=== PATIENT | female | born 1995 | race Caucasian/White ===

== ENCOUNTER 2017-01-02 00:50 | Emergency (ER) | payer SELFPAY ==
[2017-01-02 00:55] VITALS: BP 111/72; PULSE 78; RESP 20; TEMP 98.9; O2SAT 100
[2017-01-02] MEDS ORDERED: ADDE20 PO (01:02)
[2017-01-02] MEDS ORDERED: LO LTAB PO (01:02)
--- NOTE | 2017-01-02 01:34 | PD ---
HPI Chief Complaint: Psychiatric Symptoms Time Seen by Provider: 01:20 Travel History International Travel<30 days: No Contact w/Intl Traveler<30days: No Traveled to known affect area: No History of Present Illness HPI 21-year-old female presents under Amaya act initiated by the police were. The patient reports a history of anxiety. She reports that she been on a lot of stress in regards to school/family/relationship issues and tonight she felt overwhelmed and cut her left forearm superficially with a knife. Or may call the police and she was placed under Amaya act. She is currently anxious and tearful, feeling somewhat depressed but is denying suicidal ideation. She admits to drinking some rum tonight. Denies any drug use. She has no other complaints at this time. Her last tetanus vaccination is unknown. [facility] Past Medical History ADD: Yes Anxiety: Yes Immunizations Current: Yes Tetanus Vaccination: Unknown ?: Unknown Past Surgical History Surgical History: No Previous Surgery Social History Alcohol Use: Yes Tobacco Use: No Substance Use: No Allergies-Medications (Allergen,Severity, Reaction): Coded Allergies: No Known Allergies (Unverified , 01/02/17) Reported Meds & Prescriptions Reported Meds & Active Scripts Active Reported Lo Loestrin Fe /10 (Norethindrone-Ethinyl Estradiol-Fe) 1-10 Mg-Mcg Tab 1 Tab PO DAILY Adderall (Amphetamine-Dextroamphetamine) 20 Mg Tab 20 Mg PO DAILY Avoid late evening doses. Space doses at least 4 to 6 hours if more than once/day dosing. Review of Systems Except as stated in HPI: all other systems reviewed are Neg Physical Exam Narrative GENERAL: Well-developed well-nourished female who is anxious and tearful SKIN: Warm and dry. Superficial linear abrasions left forearm. HEAD: Atraumatic. Normocephalic. EYES: Pupils equal and round. No scleral icterus. No injection or drainage. ENT: No nasal bleeding or discharge. Mucous membranes pink and moist. NECK: Trachea midline. No JVD. CARDIOVASCULAR: Regular rate and rhythm. No murmur appreciated. RESPIRATORY: No accessory muscle use. Clear to auscultation. Breath sounds equal bilaterally. GASTROINTESTINAL: Abdomen soft, non-tender, nondistended. Hepatic and splenic margins not palpable. MUSCULOSKELETAL: No obvious deformities. No clubbing. No cyanosis. No edema. NEUROLOGICAL: Awake and alert. No obvious cranial nerve deficits. Motor grossly within normal limits. Normal speech. PSYCHIATRIC: Anxious, tearful, depressed Data Data Last Documented VS Vital Signs Date Time Temp Pulse Resp B/P Pulse Ox O2 Delivery O2 Flow Rate FiO2 01/02/17 00:55 98.9 78 20 111/72 100 Orders Complete Blood Count With Diff (01/02/17 01:31) Comprehensive Metabolic Panel (01/02/17 01:31) Ed Urine Pregnancytest Poc (01/02/17 01:31) Psych Screen (01/02/17 01:31) Drug Screen, Random Urine (01/02/17 01:31) Alcohol (Ethanol) (01/02/17 01:31) Lorazepam Inj (Ativan Inj) (01/02/17 01:45) Tetanus/Diphtheria Tox Adult (Tetanus/Di (01/02/17 01:45) Labs Laboratory Tests Test 01/02/17 01:45 White Blood Count 7.4 TH/MM3 Red Blood Count 4.64 MIL/MM3 Hemoglobin 15.0 GM/DL Hematocrit 43.1 % Mean Corpuscular Volume 92.8 FL Mean Corpuscular Hemoglobin 32.4 PG Mean Corpuscular Hemoglobin 34.9 % Concent Red Cell Distribution Width 12.7 % Platelet Count 292 TH/MM3 Mean Platelet Volume 7.6 FL Neutrophils (%) (Auto) 57.5 % Lymphocytes (%) (Auto) 35.7 % Monocytes (%) (Auto) 5.5 % Eosinophils (%) (Auto) 0.7 % Basophils (%) (Auto) 0.6 % Neutrophils # (Auto) 4.3 TH/MM3 Lymphocytes # (Auto) 2.6 TH/MM3 Monocytes # (Auto) 0.4 TH/MM3 Eosinophils # (Auto) 0.0 TH/MM3 Basophils # (Auto) 0.0 TH/MM3 CBC Comment DIFF FINAL Differential Comment Sodium Level 144 MEQ/L Potassium Level 3.6 MEQ/L Chloride Level 109 MEQ/L Carbon Dioxide Level 24.8 MEQ/L Anion Gap 10 MEQ/L Blood Urea Nitrogen 8 MG/DL Creatinine 0.71 MG/DL Estimat Glomerular Filtration 105 ML/MIN Rate Random Glucose 76 MG/DL Calcium Level 8.7 MG/DL Total Bilirubin 0.4 MG/DL Aspartate Amino Transf 18 U/L (AST/SGOT) Alanine Aminotransferase 25 U/L (ALT/SGPT) Alkaline Phosphatase 60 U/L Total Protein 7.9 GM/DL Albumin 3.9 GM/DL Urine Opiates Screen NEG Urine Barbiturates Screen NEG Urine Amphetamines Screen NEG Urine Benzodiazepines Screen NEG Urine Cocaine Screen NEG Urine Cannabinoids Screen NEG Ethyl Alcohol Level 204 MG/DL [facility] Medical Decision Making Medical Screen Exam Complete: Yes Emergency Medical Condition: Yes Medical Record Reviewed: Yes Differential Diagnosis Adjustment reaction, acute psychosis, anxiety, major depressive disorder, substance induced disorder Narrative Course 21-year-old female presents under Amaya act for psychiatric evaluation. She has superficial linear abrasions to the left arm. Lab work is been reviewed. Alcohol level is 204 otherwise unremarkable. Mental health screening discussed with the patient. Psychiatric screen ordered. The patient is medically cleared. Diagnosis Primary Impression: Medical clearance for psychiatric admission Davis Warner Jan 02, 2017 01:34
[2017-01-02] MEDS ORDERED: TETANUS/DIPHTHERIA TOXOID ADULT 0.5 ML VIAL IM ONE (01:45)
[2017-01-02] MEDS ORDERED: LORazepam 2 MG/ML VIAL IM ONE (01:45)
[2017-01-02 02:24] LABS: AMPHETAMINE, URINE NEG (NEG); AUTOMATED NEUTROPHIL # 4.3 TH/MM3 (1.8-7.7); BARBITURATES, URINE NEG (NEG); BASOPHIL % 0.6 % (0.0-2.0); COCAINE, URINE NEG (NEG); EOSINOPHIL % 0.7 % (0.0-4.0); HEMATOCRIT 43.1 % (35.0-46.0); HEMO FLAGS DIFF FINAL; LYMPH % 35.7 % (9.0-44.0); LYMPHOCYTE # 2.6 TH/MM3 (1.0-4.8); MEAN CELL VOLUME 92.8 FL (80.0-100.0); MEAN CORPUSCULAR HEMOGLOBIN 32.4 PG (27.0-34.0); MEAN CORPUSCULAR HGB CONC 34.9 % (32.0-36.0); MONO % 5.5 % (0.0-8.0); NEUT % 57.5 % (16.0-70.0); PLATELET COUNT 292 TH/MM3 (150-450); RED BLOOD COUNT 4.64 MIL/MM3 (4.00-5.30); RED CELL DISTRIBUTION WIDTH 12.7 % (11.6-17.2); WHITE BLOOD COUNT 7.4 TH/MM3 (4.0-11.0)
[2017-01-02 02:38] LABS: ALT (GPT) 25 U/L (9-42); ANION GAP 10 MEQ/L (5-15); AST (GOT) 18 U/L (16-38); BICARBONATE 24.8 MEQ/L (21.0-32.0); BLOOD UREA NITROGEN 8 MG/DL (7-18); CHLORIDE 109 MEQ/L (98-107); GLOMERULAR FILTRATION RATE 105 ML/MIN (>89); POTASSIUM 3.6 MEQ/L (3.5-5.1); SODIUM (NA) 144 MEQ/L (136-145)
[2017-01-02 02:41] LABS: ALKALINE PHOSPHATASE 60 U/L (45-117); TOTAL BILIRUBIN ADULT 0.4 MG/DL (0.2-1.0)
[2017-01-02 06:30] VITALS: BP 100/57; PULSE 82; RESP 17; O2SAT 97
[2017-01-02 08:00] VITALS: BP 110/76; TEMP 97.8
--- NOTE | 2017-01-02 09:38 | PD.CONS ---
Provisional Diagnosis Admission Date 01/02/17 [place] 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 EMS was called patient brought to the hospital under the Amaya act. Patient seen screened in ED urine toxicology negative cortical level 204. Patients very superficial abrasions left volar wrist were treated. Patient medically cleared. Patient seen by me with nurse Nena. 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 There is also stress with grades. Patient states she is a very social person doing well in school. She has acknowledged drinking 2-3 times per week she drinks he usually does this in excess. She states she also drank in high school. She history of alcohol abuse in her family of origin also. She denies any other drug use. She states she has been in counseling since a teenager for anxiety and perhaps some depressive symptoms. She denies psychiatric contact hospitalizations or psychotropic medications patient denies suicidality at this time, is able contracted to no harm. Patient denies any physical or sexual abuse. At the present time patient does not meet Amaya act criteria I will lift the Amaya act. As okay by Peewee Bellamy patient to be discharged to herself, no Rx by me, strongly referral [facility] through [facility]. Referral also to AA. And perhaps stops abuse counseling through the [facility] also. Review of Systems Constitutional: DENIES: Diaphoretic episodes, Fatigue, Fever, Weight gain, Weight loss, Chills, Dizziness, Change in appetite, Night Sweats Endocrine: DENIES: Abnorml menstrual pattern, Heat/cold intolerance, Polydipsia , Polyuria, Polyphagia Eyes: DENIES: Blurred vision, Diplopia, Eye inflammation, Eye pain, Vision loss , Photosensitivity, Double Vision Ears, nose, mouth, throat: DENIES: Tinnitus, Hearing loss, Vertigo, Nasal discharge, Oral lesions, Throat pain, Hoarseness, Ear Pain, Running Nose, Epistaxis, Sinus Pain, Toothache, Odynophagia Respiratory: DENIES: Apneas, Cough, Snoring, Wheezing, Hemoptysis, Sputum production, Shortness of breath Cardiovascular: DENIES: Chest pain, Palpitations, Syncope, Dyspnea on Exertion , PND, Lower Extremity Edema, Orthopnea, Claudication Gastrointestinal: DENIES: Abdominal pain, Black stools, Bloody stools, Constipation, Diarrhea, Nausea, Vomiting, Difficulty Swallowing, Anorexia Genitourinary: DENIES: Abnormal vaginal bleeding, Dysmenorrhea, Dyspareunia, Sexual dysfunction, Urinary frequency, Urinary incontinence, Urgency, Hematuria , Dysuria, Nocturia, Vaginal discharge Musculoskeletal: DENIES: Joint pain, Muscle aches, Stiffness, Joint Swelling, Back pain, Neck pain Integumentary: DENIES: Abnormal pigmentation, Pruritus, Rash, Nail changes, Breast masses, Breast skin changes, Nipple discharge Hematologic/lymphatic: DENIES: Bruising, Lymphadenopathy Immunologic/allergic: DENIES: Eczema, Urticaria Neurologic: DENIES: Abnormal gait, Headache, Localized weakness, Paresthesias, Seizures, Speech Problems, Tremor, Poor Balance Psychiatric: COMPLAINS OF: Depression Past Family Social History Coded Allergies: No Known Allergies (Unverified , 01/02/17) Past Medical History None significant Reported Medications Norethindrone-Ethinyl Estradiol-Fe (Lo Loestrin Fe 10/06)1-10 Mg-Mcg Tab1 Tab PO DAILY #1 PACK Ref 0 01/02/17 Amphetamine-Dextroamphetamine (Adderall)20 Mg Tab20 Mg PO DAILY #30 TAB Ref 0 Avoid late evening doses. Space doses at least 4 to 6 hours if more than once/day dosing. 01/02/17 Family History Patient states mother was a heavy drinker Social History Patient lives her own home with roommate will be going to graduate school next year is having some difficulty with boyfriend's Patient's Strengths (min. 2) Patient verbal intelligence cooperative Physical Exam Patient seen screened in ED exam reviewed and agreed with Vital Signs Vital Signs Date Time Temp Pulse Resp B/P Pulse Ox O2 Delivery O2 Flow Rate FiO2 01/02/17 06:30 82 17 100/57 97 Room Air 01/02/17 00:55 98.9 Mental Status Examination Alert oriented white female appears stated age resting calmly and her bed on the pod nurse Nena present throughout session patient calm cooperative with good eye contact Appearance Clean and neat Speech: Unremarkable Orientation: x3 Memory: Unremarkable Thought Process: Logical Thought Content: Unremarkable Language [place] [employer] Good Hallucination Type: None Attention and Concentration: Good Suicidal Ideation: Yes (has had vague suicidal ideation though no intent or plan able contracted to no harm) Previous Suicide Attempts: No Homicidal Ideation: No Previous Homicide Attempts: No Insight: Fair Judgment: WNL Affect: Other (slight decreased range and intensity) Mood: Euthymic (to mildly restricted) Motor Activity: Normal gait Assessment & Plan Problem List: (1) Adjustment disorder with mixed disturbance of emotions and conduct ICD Code: F43.25 (2) Alcohol intoxication, episodic ICD Code: F10.129 Assessment & Plan Estimated LOS: days patient does not meet Amaya criteria will lift Amaya act as okay by psych for discharge or medically clear and stable. No Rx by me. Strongly referral to counseling through the [facility], also referred to substance abuse assessment through the [facility] and perhaps also AA Discharge Planning See above Request HC Surrog/Guard Advoc?: No Saurav Avery MD Jan 02, 2017 09:38
== END 2017-01-02 10:14 | disposition home or self-care (01) ==
LOC: NEPB 00:50
DX: F32.9 Major depressive disorder, single episode, unspecified (principal); F10.129 Alcohol abuse with intoxication, unspecified; S40.812A Abrasion of left upper arm, initial encounter; Y90.7 Blood alcohol level of 200-239 mg/100 ml; X78.1XXA Intentional self-harm by knife, initial encounter; Y93.9 Activity, unspecified; Y92.214 College as the place of occurrence of the external cause; Y99.8 Other external cause status
CPT/HCPCS: 80053; 80307; 84703; 85025; 90471; 90714; 96372; 99284; J2060

== ENCOUNTER 2017-02-13 22:30 | Emergency (ER) | payer SELFPAY ==
[~2017-02-13] VITALS: Ht 175.3 cm; Wt 70.0 kg
[~2017-02-13 22:30] MED LIST: ADDE20 PO; LO LTAB PO
[2017-02-13 22:40] VITALS: BP 128/87; PULSE 94; RESP 18; TEMP 98.9; O2SAT 97
[2017-02-13] MEDS ORDERED: SODIUM CHLOR 0.9% 1000 ML INJ 1,000 ML IV SCH (23:25)
[2017-02-13] MEDS ORDERED: SODIUM CHLORIDE 0.9% FLUSH 10 ML FLUSH IV FLUSH PRN (23:30)
[2017-02-13] MEDS ORDERED: KETOROLAC TROMETHAMINE 30 MG/ML (IVP) VIAL IVP ONE (23:30)
[2017-02-13 23:42] LABS: BLOOD, URINE TRACE (NEG); COMMENT (UR) CULTURE INDICATED; CULTURE IF INDICATED CULTURE INDICATED; GLUCOSE,URINE NEG (NEG); KETONE, URINE 10 mg/dL (NEG); MUCUS URINE MANY /lpf (OCC); NITRITE,URINE NEG (NEG); SQUAMOUS EPITHELIAL CELL URINE 13 /hpf (0-5); URINE COLOR ORANGE (YELLW/STRAW)
[2017-02-13 23:58] LABS: AUTOMATED NEUTROPHIL # 4.3 TH/MM3 (1.8-7.7); BASOPHIL % 0.7 % (0.0-2.0); EOSINOPHIL # 0.1 TH/MM3 (0-0.4); EOSINOPHIL % 0.9 % (0.0-4.0); HEMATOCRIT 34.5 % (35.0-46.0); HEMO FLAGS DIFF FINAL; LYMPH % 29.7 % (9.0-44.0); MEAN CELL VOLUME 97.2 FL (80.0-100.0); MEAN CORPUSCULAR HEMOGLOBIN 33.1 PG (27.0-34.0); MONO % 5.1 % (0.0-8.0); NEUT % 63.6 % (16.0-70.0); PLATELET COUNT 233 TH/MM3 (150-450); RED BLOOD COUNT 3.55 MIL/MM3 (4.00-5.30); RED CELL DISTRIBUTION WIDTH 13.8 % (11.6-17.2); WHITE BLOOD COUNT 6.7 TH/MM3 (4.0-11.0)
--- NOTE | 2017-02-14 00:06 | PD ---
HPI Chief Complaint: Complaint Time Seen by Provider: 23:16 Travel History International Travel<30 days: No Contact w/Intl Traveler<30days: No Traveled to known affect area: No History of Present Illness HPI 21-year-old female 0 arrives with dysuria for several days. She reports several urinary tract infections in the last couple months. She also reports vaginal candidiasis. She finished a course of Cipro. That preceded the vaginal candidiasis. She took Diflucan however she's had persistent vaginal discharge. She also reports some pain in the bilateral lower back which she believes is due to kidney injury. She's had no fever nausea or vomiting. PFSH Past Medical History ADD: Yes Anxiety: Yes Diminished Hearing: No Genitourinary: Yes (FREQUENT UTI) Kidney Stones: Yes Immunizations Current: Yes ?: Not Past Surgical History Surgical History: No Previous Surgery Social History Alcohol Use: Yes (OCC) Tobacco Use: No Substance Use: No (PT DENIES) Allergies-Medications (Allergen,Severity, Reaction): Coded Allergies: No Known Allergies (Unverified , 02/13/17) Reported Meds & Prescriptions Reported Meds & Active Scripts Active Macrobid (Nitrofurantoin Monoh/Nitrofur Macro) 100 Mg Cap 100 Mg PO BID 5 Days Reported Lo Loestrin Fe 1/10 (Norethindrone-Ethinyl Estradiol-Fe) 1-10 Mg-Mcg Tab 1 Tab PO DAILY Adderall (Amphetamine-Dextroamphetamine) 20 Mg Tab 20 Mg PO DAILY Avoid late evening doses. Space doses at least 4 to 6 hours if more than once/day dosing. Review of Systems Except as stated in HPI: all other systems reviewed are Neg General / Constitutional: No: Fever Genitourinary: Positive: Discharge, No: Dysmenorrhea, Vaginal Bleeding Physical Exam Narrative GENERAL: 21-year-old female pleasant well-nourished well-developed PELVIC: Moderate yellow mucus-like discharge in the vault. Trace CMT. External genitalia unremarkable. No adnexal mass or tenderness. SKIN: Warm and dry. HEAD: Atraumatic. Normocephalic. EYES: Pupils equal and round. No scleral icterus. No injection or drainage. ENT: No nasal bleeding or discharge. Mucous membranes pink and moist. CARDIOVASCULAR: Regular rate and rhythm. RESPIRATORY: No accessory muscle use. Clear to auscultation. Breath sounds equal bilaterally. GASTROINTESTINAL: Abdomen soft, non-tender, nondistended. Hepatic and splenic margins not palpable. MUSCULOSKELETAL: Extremities without clubbing, cyanosis, or edema. No obvious deformities. NEUROLOGICAL: Awake and alert. No obvious cranial nerve deficits. Motor grossly within normal limits. Five out of 5 muscle strength in the arms and legs. Normal speech. PSYCHIATRIC: Appropriate mood and affect; insight and judgment normal. Data Data Last Documented VS Vital Signs Date Time Temp Pulse Resp B/P Pulse Ox O2 Delivery O2 Flow Rate FiO2 02/13/17 22:40 98.9 94 18 128/87 97 Vital signs reviewed Orders Urinalysis - C+S If Indicated (02/13/17 22:47) Ed Urine Pregnancytest Poc (02/13/17 22:48) Gc And Chlamydia Pcr (02/13/17 23:25) Wet Prep Profile (02/13/17 23:25) Basic Metabolic Panel (Bmp) (02/13/17 23:25) Complete Blood Count With Diff (02/13/17 23:25) Iv Access Insert/Monitor (02/13/17 23:25) Oximetry (02/13/17 23:25) Sodium Chlor 0.9% 1000 Ml Inj (Ns 1000 M (02/13/17 23:25) Sodium Chloride 0.9% Flush (Ns Flush) (02/13/17 23:30) Ketorolac Inj (Toradol Inj) (02/13/17 23:30) Urine Culture (02/13/17 22:50) Ceftriaxone Inj (Rocephin Inj) (02/14/17 00:30) Azithromycin Powd Pack (Zithromax Powd P (02/14/17 00:30) Labs Laboratory Tests Test 02/13/17 02/13/17 02/13/17 22:50 23:40 23:57 Urine Color ORANGE Urine Turbidity HAZY Urine pH 6.0 Urine Specific [place] 1.028 Urine Protein 30 mg/dL Urine Glucose (UA) NEG mg/dL Urine Ketones 10 mg/dL Urine Occult Blood TRACE Urine Nitrite NEG Urine Bilirubin NEG Urine Urobilinogen 2.0 MG/DL Urine Leukocyte Esterase LARGE Urine RBC 8 /hpf Urine WBC 116 /hpf Urine Squamous Epithelial 13 /hpf Cells Urine Mucus MANY /lpf Microscopic Urinalysis Comment CULTURE INDICATED White Blood Count 6.7 TH/MM3 Red Blood Count 3.55 MIL/MM3 Hemoglobin 11.7 GM/DL Hematocrit 34.5 % Mean Corpuscular Volume 97.2 FL Mean Corpuscular Hemoglobin 33.1 PG Mean Corpuscular Hemoglobin 34.0 % Concent Red Cell Distribution Width 13.8 % Platelet Count 233 TH/MM3 Mean Platelet Volume 7.5 FL Neutrophils (%) (Auto) 63.6 % Lymphocytes (%) (Auto) 29.7 % Monocytes (%) (Auto) 5.1 % Eosinophils (%) (Auto) 0.9 % Basophils (%) (Auto) 0.7 % Neutrophils # (Auto) 4.3 TH/MM3 Lymphocytes # (Auto) 2.0 TH/MM3 Monocytes # (Auto) 0.3 TH/MM3 Eosinophils # (Auto) 0.1 TH/MM3 Basophils # (Auto) 0.0 TH/MM3 CBC Comment DIFF FINAL Differential Comment Sodium Level 140 MEQ/L Potassium Level 3.7 MEQ/L Chloride Level 103 MEQ/L Carbon Dioxide Level 28.2 MEQ/L Anion Gap 9 MEQ/L Blood Urea Nitrogen 15 MG/DL Creatinine 0.80 MG/DL Estimat Glomerular Filtration 91 ML/MIN Rate Random Glucose 74 MG/DL Calcium Level 9.1 MG/DL Clue Cells (Wet Prep) NONE SEEN Vaginal Trichomonas (Wet Prep) NONE SEEN Vaginal Yeast (Wet Prep) NONE SEEN MDM Medical Decision Making Medical Screen Exam Complete: Yes Emergency Medical Condition: Yes Medical Record Reviewed: Yes Differential Diagnosis IUP, UTI, ectopic , ov torsion, appendicitis, TOA, cervicitis, BV, Trichomoniasis, ov cyst, hernia, mittelschmerz, pain from menstruation Narrative Course CBC & BMP Diagram 02/13/17 23:40 Urinalysis shows UTI Wet prep is negative POC is negative The patient is resting comfortably and feels better, is alert and in no distress. The patients results and examination findings were discussed. The repeat examination is unremarkable and benign. The history, exam, diagnostic testing, and current condition do not suggest any significant pathology to warrant further testing, continued ED treatment, admission, or surgical evaluation at this point. The vital signs have been stable. The patient does not have uncontrollable pain, intractable vomiting, or other significant symptoms. The patient's condition is stable and appropriate for discharge. The patient will pursue further outpatient evaluation with a primary care physician or other designated or consulting physician as indicated in the discharge instructions. The patient expressed understanding and was agreeable with this plan. Diagnosis Primary Impression: Cystitis Referrals: [facility] call for appointment Urologist call for appointment Additional Instructions: You have a choice when it comes to health care, and we are glad that you chose [facility]. Hopefully, we have met your expectations on today's visit. You are welcome to return to [facility] at any time, as we are committed to meeting the health care needs of our community. Med/Other Pt SpecificInfo: Prescription(s) given Scripts Nitrofurantoin Monohydrate Macrocrystals (Macrobid)100 Mg [id number] Mg PO BID 5 Days Ref 0 Prov:Mook Wilson MD 02/14/17 Disposition: 01 DISCHARGE HOME Condition: Stable Mook Wilson MD February 14, 2017 00:06
[2017-02-14 00:14] LABS: BICARBONATE 28.2 MEQ/L (21.0-32.0); POTASSIUM 3.7 MEQ/L (3.5-5.1)
[2017-02-14] MEDS ORDERED: cefTRIAXone INJ 1,000 MG in SODIUM CHLORIDE 0.9% INJ 100 ML IV ONE (00:30)
[2017-02-14] MEDS ORDERED: MACR100C2 PO (00:30)
[2017-02-14] MEDS ORDERED: AZITHROMYCIN PWD FOR SUSP 1 GM PACKET PO ONE (00:30)
[2017-02-14 03:09] LABS: CHLAMYDIA PCR NOT DETECTED (NOT DETECT); NEISSERIA PCR NOT DETECTED (NOT DETECT)
== END 2017-02-14 01:15 | disposition home or self-care (01) ==
LOC: NEPC 22:30
DX: N30.90 Cystitis, unspecified without hematuria (principal); B96.89 Other specified bacterial agents as the cause of diseases classified elsewhere
CPT/HCPCS: 80048; 81001; 84703; 85025; 87086; 87210; 87491; 87591; 96361; 96365; 96375; 99283; J0696; J1885; J7030